=== PATIENT | male | born 1965 | race Caucasian/White ===

== ENCOUNTER → 2016-05-23 | Day surgery (SDC) | payer BC ==
[~2016-05-23] VITALS: Ht 175.3 cm; Wt 94.8 kg
[~2016-05-23] MED LIST: ACETAMINOPHEN 1000 MG/100 ML VIAL IV SCH; ASPI1TAB69 PO; ATOR20TA15 PO; BUPIVACAINE HCL PF 0.5% 30 ML VIAL ONE; BUPIVACAINE LIPOSOME PF 1.3% 20 ML VIAL ONE; BUPIVACAINE/EPINEPHRINE 0.25% PF 30 ML VIAL INFIL ONE; CHOL400D2 PO; DEXAMETHASONE SOD PHOS PF 10 MG/ML VIAL IV ONE; DO NOT ADM ANY ANTICOAGULANT DRUGS XX PRN; INSULIN HUMAN REGULAR 1,000 UNITS/10 ML VIAL SQ PRN; KETOROLAC TROMETHAMINE 30 MG/ML (IVP) VIAL IV PUSH ONE; KETOROLAC TROMETHAMINE 30 MG/ML (IVP) VIAL ONE; LISI-515 PO; METOPROLOL TARTRATE 25 MG TAB PO PRN; MIDAZOLAM HCL 5 MG/5 ML VIAL ONE; MORPHINE SULFATE 4 MG/ML INJ IV PRN; NEOSTIGMINE 3 MG/3 ML SYR IV ONE; ONDANSETRON HCL 4 MG/2 ML VIAL IV PRN; ONDANSETRON HCL 4 MG/2 ML VIAL IV PUSH ONE; PHENYLEPH/NS 1000 MCG/10 ML SYR IV ONE; PROMETHAZINE INJ 25 MG/ML VIAL ONE; PROPOFOL 200 MG/20 ML AMP IV ONE; SODIUM CHLORID 0.9% 500 ML IV SCH; SODIUM CHLORIDE 5 ML FLUSH BID IVF SCH; SODIUM CHLORIDE 5 ML FLUSH PRN IVF; SUGAMMADEX SODIUM 200 MG/2 ML VIAL IV PUSH ONE; VERA1TAB17 PO; ceFAZolin 2 GM PREMIX 50 ML IV SCH; ePHEDrine/NS 50 MG/5 ML SYR IV ONE; fentaNYL CITRATE 250 MCG/5 ML AMP ONE; oxyCODONE/ACETAMINOPHEN 5 MG/325 MG TAB PO PRN
[2016-05-23 06:47] VITALS: BP 121/69; PULSE 77; RESP 18; TEMP 97.8; O2SAT 96
[2016-05-23] MEDS: LACTATED RINGER'S 1000 ML IV SCH ×2 (06:55→11:55)
--- NOTE | 2016-05-23 11:30 | PD.OP ---
cc: Andre Mcnally MD Operative Report Date of Surgery: May 23, 2016 Preoperative Diagnosis: Umbilical hernia Postoperative Diagnosis: Umbilical hernia Procedure: Laparoscopic repair of umbilical hernia with ventral light ST mesh Anesthesia: Gen. endotracheal Surgeon: Andre Mcnally [employer] Teacher(s): Chepe Hayden CFA Operation and Findings: Operative findings: the patient was found to have a 2.5-3 cm umbilical hernia with no evidence of incarceration. No other antibiotics were noted. Operative procedure: The patient was brought to the operating room after having undergone placement of a TA P block in preop holding. After satisfactory general endotracheal anesthesia was obtained, the abdomen was prepped and draped in the usual sterile fashion. An [place] drape was placed across the abdomen. 0.25% Marcaine with epinephrine was used to infiltrate the skin for local anesthesia in the subcostal region. A transverse incision was made and then by blunt dissection with a hemostat and the peritoneal cavity was entered with care being taken not to injure the underlying viscera. A 12 mm GelPort was placed within the perineal cavity and the abdomen insufflated 15 mmHg using carbon dioxide. The camera was inserted and visceral injury inspected for, with none being identified. Under direct visualization 3 5 mm ports were placed in the right upper right lower and left lower quadrants respectively. With no incarcerated viscera and on moderate amount of peritoneal fat it was decided to proceed with repair. The fat was taken down with a Harmonic scalpel to allow a good base for fixating the mesh to the peritoneum directly. Once the fat of been cleared a 15 x 20 cm piece of ventral light ST with echo deployment system was selected. It was placed within the peritoneal cavity without problem. Once it was unfurled the insufflation tubing was brought through a supraumbilical small incision using the [place] suture passer. The mesh backbone was then inflated with air and secured to the anterior abdominal wall. The mesh was rotated into the proper direction. It was then secured in 4 quadrants using pro-tacks area the mesh backbone was removed and discarded. The remainder of the first layer of tacks was placed circumferentially around the mesh. Absorb attacks were then used to completely fixate the main or the mesh to the anterior abdominal wall so it was completely flat with no lax areas. Hemostasis was checked for and found be satisfactory. The carbon dioxide was vented as completely as possible the atmosphere and the ports removed. The 12 mm fascial defect was closed with interrupted 0 Vicryl sutures. Skin was then closed with interrupted 4-0 Monocryl subcuticular stitches. Steri-Strips were applied the patient was then awakened and taken from the operating room, in satisfactory condition, having tolerated procedure without problem. Estimated blood loss was less than 5 mL's. He has been, sponge, needle counts were reported as being correct 2 at the end the procedure. Andre Mcnally MD May 23, 2016 11:30
[2016-05-23 15:26] VITALS: BP 140/71; PULSE 84; RESP 18; O2SAT 97
== END | disposition home or self-care (01) ==
LOC: HSDC 06:15
PROVIDERS: ATTEND Surgery
DX: K42.9 Umbilical hernia without obstruction or gangrene (principal); E11.9 Type 2 diabetes mellitus without complications; I10 Essential (primary) hypertension; E78.5 Hyperlipidemia, unspecified
CPT/HCPCS: 00752; 49652; 64486; 82948; C1781; C9290; J0131; J0690; J1100; J1885; J2250; J2370; J2405; J2550; J2710; J3010; J7120